=== PATIENT | female | born 1965 | race Caucasian/White ===

== ENCOUNTER → 2016-10-17 | Outpatient (CLI) | payer MEDICARE, MEDICAID, OTHER ==
[~2016-10-17] MED LIST: Iopamidol 755 MG/ML 50 ML Bottle IV STA
--- NOTE | 2016-10-17 12:52 | CT ---
EXAMINATION: CTA chest HISTORY: Hemoptysis COMPARISON: None TECHNIQUE: Axial CT images obtained through the chest following the administration of 50 mL of Isovu e-370 in the left arm. Coronal and sagittal reconstructions obtained. FINDINGS: The lungs are clear without focal consolidation. No pleural effusion or pneumothorax. The heart is borderline in size without a significant pericardial effusion. The thoracic aorta normal ca liber. The main and central pulmonary arteries are patent without visualized pulmonary embolism. Tho racic aorta normal caliber. No mediastinal or hilar lymphadenopathy. No axillary lymphadenopathy. The visualized images of the upper abdomen appear normal. No suspicious osseous abnormalities. IMPRESSION: No acute cardiopulmonary findings.
[2016-10-17 13:25] LABS: CHLORIDE,CL 105 mmol/L (98-110); SODIUM,NA 138 mmol/L (136-146)
== END | disposition home or self-care (01) ==
LOC: MW.CHRC 11:00
PROVIDERS: ATTEND Family Medicine
DX: R04.2 Hemoptysis (principal); R19.7 Diarrhea, unspecified; R10.30 Lower abdominal pain, unspecified; M79.604 Pain in right leg; J45.901 Unspecified asthma with (acute) exacerbation
CPT/HCPCS: 36415; 71275; 80053; 85025; 87804; 99214; Q9967

== ENCOUNTER 2016-10-27 21:30 | Observation (INO) | payer MEDICARE, MEDICAID, SELFPAY ==
[2016-10-27] MEDS ORDERED: Sodium Chloride 0.9% 10 ML Syringe FLUSH PRN (21:34)
[2016-10-27] MEDS ORDERED: Famotidine 20 MG/2 ML SDV IVPUSH ONE (21:34)
[2016-10-27] MEDS ORDERED: Sodium Chloride 0.9% 2.5 ML Syringe FLUSH PRN (21:34)
--- NOTE | 2016-10-27 21:44 | EDM.PDOC ---
<Cyndi Momin - Last Filed: 10/27/16 21:46> ED HPI GENERAL MEDICAL PROBLEM - General Stated Complaint: PT HAS CHEST PAINS Time Seen by Provider: 10/27/16 21:40 Source of Information: Reports: Patient History Limitations: Reports: No limitations - History of Present Illness INITIAL COMMENTS - FREE TEXT/NARRATIVE: HISTORY AND PHYSICAL: [51-year-old female presenting with chest pain] History of Present Illness: [Chest pain started yesterday worsened today. Patient has had upper respiratory infection and was seen by Dr. Braga. He had started her on some prednisone. Sugars have been elevated. She does take a baby aspirin daily Denies shortness of breath Patient has history of IDDM, liver fibrosis, are a, migraine headache] Review of Systems: As per history of present illness and below otherwise all systems reviewed and negative. Past medical history: As per history of present illness and as reviewed below otherwise noncontributory. Surgical history: As per history of present illness and as reviewed below otherwise noncontributory. Rectum a tubal ligation Social history: No reported history of drug or alcohol abuse. Family history: As per history of present illness and as reviewed below otherwise noncontributory. Physical exam: Alert oriented female. Answering questions in full sentences. HEENT: Atraumatic, normocehpalic, pupils reactive, negative for conjunctival pallor or scleral icterus, mucous membranes moist, throat clear, neck supple, nontender, trachea midline. Lungs: Clear to auscultation, breath sounds equal bilaterally, chest non tender. Heart: S1S2, regular, negative for clicks, rubs, or JVD. Abdomen: Soft, nondistended, nontender. Negative for masses or hepatossplenmegaly. Negative for costovertebral tenderness. Pelvis: Stable nontender. Genitourinary: Deferred. Rectal: Deferred Extremities: Atraumatic, negative for cords or calf pain. Pedal pulses are palpable Neurovascular unremarkable. Neuro: Awake, alert, oriented. Cranial nerves II through XII unremarkable. Cerebellum unremarkable. Motor and sensory unremarkable throughout. Exam nonfocal. Diagnostics: [CBC CMP troponin amylase lipase chest x-ray EKG UA] Therapeutics: [Aspirin 324mg, Pepcid, Nitrostat SL] Impression: [Chest pain Diabetes uncontrolled] Plan: [] Definitive disposition and diagnosis as appropriate pending reevaluation and review of above. Onset: sudden Duration: Day(s): (began yesterday), Getting worse Location: Reports: face, chest, upper extremity, left Quality: Reports: Ache, Stabbing Severity: moderate Improves with: Reports: None Associated Symptoms: Reports: no other symptoms - Related Data Allergies Allergy/AdvReac Type Severity Reaction Status Date / Time sumatriptan [From Imitrex] Allergy Other Verified 10/27/16 22:05 Home Meds: Home Meds Albuterol Sulfate [Proair Hfa] 2 puff INH ASDIRECTED PRN 06/04/16 [History] Gabapentin [Neurontin] 1 - 2 tab PO TID 06/04/16 [History] Glimepiride [Amaryl] 4 mg PO WITHBREAKFAST 06/04/16 [History] Omeprazole 40 mg PO DAILY 06/04/16 [History] SitaGLIPtin [Januvia] 100 mg PO DAILY 06/04/16 [History] Insulin Glargine,Hum.Rec.Anlog [Lantus Solostar] 36 unit SQ DAILY 06/05/16 [ History] Clotrimazole [Lotrimin AF 1% Crm] 1 gm TOP BID tube 06/06/16 [Rx] Aspirin 81 mg PO BRK 10/27/16 [History] metroNIDAZOLE [Flagyl] 500 mg PO ASDIRECTED 10/27/16 [History] Past Medical History HEENT History: Reports: Cataract Cardiovascular History: Reports: None. Denies: High cholesterol, Hypertension Respiratory History: Reports: Asthma Gastrointestinal History: Reports: Other (see below) Other Gastrointestinal History: stomach parasite Genitourinary History: Reports: None [employer] History: Reports: Musculoskeletal History: Reports: Arthritis, Back pain, chronic, Gout, RA Neurological History: Reports: Migraines Psychiatric History: Reports: None Endocrine/Metabolic History: Reports: Diabetes, type II Hematologic History: Reports: None Immunologic History: Reports: None Oncologic (Cancer) History: Reports: None Dermatologic History: Reports: None - Infectious Disease History Infectious Disease History: Reports: Chicken pox - Past Surgical History Head Surgeries/Procedures: Reports: None HEENT Surgical History: Reports: Tonsillectomy Respiratory Surgical History: Reports: None GI Surgical History: Reports: None Female Surgical History: Reports: Hysterectomy, Tubal ligation Social & Family History - Family History Family Medical History: Noncontributory Cardiac: Reports: Other (see below) Other Cardiac Family History: pacemaker-father OBGYN: Reports: Musculoskeletal: Reports: Arthritis, RA Endocrine/Metabolic: Reports: Diabetes, type II - Tobacco Use Smoking Status *Q: Never Smoker Second Hand Smoke Exposure: No - Caffeine Use Caffeine Use: Reports: None - Recreational Drug Use Recreational Drug Use: No ED ROS GENERAL - Review of Systems Review Of Systems: ROS reveals no pertinent complaints other than HPI. ED EXAM, GENERAL - Physical Exam Exam: See Below (see dictation) Course - Vital Signs Last Recorded V/S: Last Vital Signs Temp 36.2 C 10/27/16 21:55 Pulse 77 10/27/16 22:35 Resp 17 10/27/16 22:35 BP 103/60 10/27/16 22:35 Pulse Ox 97 10/27/16 22:35 - Orders/Labs/Meds Orders: Active Orders 24 hr Category Date Time Status Cardiac Monitoring [RC] . DIRECTED Care 10/27/16 21:34 Active EKG Documentation Completion [RC] STAT Care 10/27/16 21:35 Active Oxygen Therapy [RC] ASDIRECTED Care 10/27/16 21:34 Active Pulse Oximetry [RC] ASDIRECTED Care 10/27/16 21:34 Active Chest 1V Frontal [CR] Stat Exams 10/27/16 21:34 Taken UA W/MICROSCOPIC [URIN] Stat Lab 10/27/16 21:34 Uncollected Sodium Chloride 0.9% [Normal Saline] 1,000 ml Med 10/27/16 22:15 Active IV ASDIRECTED Sodium Chloride 0.9% [Saline Flush] Med 10/27/16 21:34 Active 10 ml FLUSH ASDIRECTED PRN Sodium Chloride 0.9% [Saline Flush] Med 10/27/16 21:34 Active 2.5 ml FLUSH ASDIRECTED PRN Saline Lock Insert [OM.PC] Stat Oth 10/27/16 21:34 Ordered Medication Orders Sodium Chloride (Normal Saline) 1,000 mls @ 999 mls/hr IV ASDIRECTED WARD Last Admin: 10/27/16 22:12 Dose: 999 mls/hr Sodium Chloride (Saline Flush) 10 ml FLUSH ASDIRECTED PRN PRN Reason: Keep Vein Open Last Admin: 10/27/16 22:04 Dose: 10 ml Sodium Chloride (Saline Flush) 2.5 ml FLUSH ASDIRECTED PRN PRN Reason: Keep Vein Open Last Admin: 10/27/16 22:04 Dose: 2.5 ml Labs: Laboratory Tests 10/27/16 10/27/16 10/27/16 Range/Units 21:40 21:40 21:40 WBC 6.93 (4.0-11.0) K/uL RBC 4.84 (4.30-5.90) M/uL Hgb 14.5 (12.0-16.0) g/dL Hct 43.2 (36.0-46.0) % MCV 89.3 (80.0-98.0) fL MCH 30.0 (27.0-32.0) pg MCHC 33.6 (31.0-37.0) g/dL RDW Std Deviation 44.2 (28.0-62.0) fl RDW Coeff of Michael 14 (11.0-15.0) % Plt Count 274 (150-400) K/uL MPV 11.60 (7.40-12.00) fL Neut % (Auto) 50.2 (48.0-80.0) % Lymph % (Auto) 41.0 H (16.0-40.0) % [place] % (Auto) 6.8 (0.0-15.0) % Eos % (Auto) 1.7 (0.0-7.0) % Baso % (Auto) 0.3 (0.0-1.5) % Neut # 3.5 (1.4-5.7) K/uL Lymph # 2.8 H (0.6-2.4) K/uL [place] # 0.5 (0.0-0.8) K/uL Eos # 0.1 (0.0-0.7) K/uL Baso # 0.0 (0.0-0.1) K/uL Nucleated RBC % 0.0 /100WBC Nucleated RBCs # 0 K/uL INR 0.95 (0.86-1.11) Sodium 139 (136-146) mmol/L Potassium 4.0 (3.5-5.1) mmol/L Chloride 105 (98-110) mmol/L Carbon Dioxide 24 (21-31) mmol/L BUN 7 (6.0-23.0) mg/dL Creatinine 0.8 (0.6-1.5) mg/dL Est Cr Clr Drug Dosing TNP Estimated GFR (MDRD) > 60.0 ml/min Glucose 403 H (60-110) mg/dL Calcium 9.4 (8.8-10.8) mg/dL Total Bilirubin 0.4 (0.1-1.5) mg/dL AST 37 (5-40) IU/L ALT 66 H (8-54) IU/L Alkaline Phosphatase 149 (40-150) Troponin I (0.0-0.29) NG/ML Total Protein 8.3 H (6.0-8.0) g/dL Albumin 4.1 (3.5-5.0) g/dL Globulin 4.2 H (2.0-3.5) g/dL Albumin/Globulin Ratio 1.0 L (1.3-2.8) Amylase 53 (10-90) U/L Lipase 57 (7-80) U/L 10/27/16 Range/Units 21:40 WBC (4.0-11.0) K/uL RBC (4.30-5.90) M/uL Hgb (12.0-16.0) g/dL Hct (36.0-46.0) % MCV (80.0-98.0) fL MCH (27.0-32.0) pg MCHC (31.0-37.0) g/dL RDW Std Deviation (28.0-62.0) fl RDW Coeff of Michael (11.0-15.0) % Plt Count (150-400) K/uL MPV (7.40-12.00) fL Neut % (Auto) (48.0-80.0) % Lymph % (Auto) (16.0-40.0) % [place] % (Auto) (0.0-15.0) % Eos % (Auto) (0.0-7.0) % Baso % (Auto) (0.0-1.5) % Neut # (1.4-5.7) K/uL Lymph # (0.6-2.4) K/uL [place] # (0.0-0.8) K/uL Eos # (0.0-0.7) K/uL Baso # (0.0-0.1) K/uL Nucleated RBC % /100WBC Nucleated RBCs # K/uL INR (0.86-1.11) Sodium (136-146) mmol/L Potassium (3.5-5.1) mmol/L Chloride (98-110) mmol/L Carbon Dioxide (21-31) mmol/L BUN (6.0-23.0) mg/dL Creatinine (0.6-1.5) mg/dL Est Cr Clr Drug Dosing Estimated GFR (MDRD) ml/min Glucose (60-110) mg/dL Calcium (8.8-10.8) mg/dL Total Bilirubin (0.1-1.5) mg/dL AST (5-40) IU/L ALT (8-54) IU/L Alkaline Phosphatase (40-150) Troponin I < 0.10 (0.0-0.29) NG/ML Total Protein (6.0-8.0) g/dL Albumin (3.5-5.0) g/dL Globulin (2.0-3.5) g/dL Albumin/Globulin Ratio (1.3-2.8) Amylase (10-90) U/L Lipase (7-80) U/L Meds: Medications Generic Name Dose Route Start Last Admin Trade Name Freq PRN Reason Stop Dose Admin Sodium Chloride 1,000 mls @ 999 mls/hr 10/27/16 22:15 10/27/16 22:12 Normal Saline IV 999 mls/hr ASDIRECTED WARD Administration Sodium Chloride 10 ml 10/27/16 21:34 10/27/16 22:04 Saline Flush FLUSH 10 ml ASDIRECTED PRN Administration Keep Vein Open Sodium Chloride 2.5 ml 10/27/16 21:34 10/27/16 22:04 Saline Flush FLUSH 2.5 ml ASDIRECTED PRN Administration Keep Vein Open Discontinued Medications Generic Name Dose Route Start Last Admin Trade Name Freq PRN Reason Stop Dose Admin Aspirin 324 mg 10/27/16 22:16 10/27/16 22:27 Aspirin PO 10/27/16 22:17 324 mg ONETIME ONE Administration Famotidine 20 mg 10/27/16 21:34 10/27/16 21:57 Pepcid IVPUSH 10/27/16 21:35 20 mg ONETIME ONE Administration Insulin Human Regular 15 unit 10/27/16 22:11 10/27/16 22:21 Novolin R SUBCUT 10/27/16 22:12 15 units ONETIME ONE Administration Protocol Nitroglycerin 0.4 mg 10/27/16 21:34 10/27/16 22:02 Nitrostat SL 10/27/16 21:35 0.4 mg ONETIME ONE Administration Nitroglycerin 0.5 gm 10/27/16 22:16 10/27/16 22:27 Nitro-Bid 2% TOP 10/27/16 22:17 0.5 gm ONETIME ONE Administration Ondansetron HCl 4 mg 10/27/16 22:24 10/27/16 22:33 Zofran IVPUSH 10/27/16 22:25 4 mg ONETIME ONE Administration Departure - Departure Time of Disposition: 21:51 Disposition: Refer to Observation Condition: good Clinical Impression: Atypical chest pain, Acute coronary syndrome - My Orders Last 24 Hours: My Active Orders 10/27/16 22:15 Sodium Chloride 0.9% [Normal Saline] 1,000 ml IV ASDIRECTED - Assessment/Plan Last 24 Hours: My Active Orders 10/27/16 22:15 Sodium Chloride 0.9% [Normal Saline] 1,000 ml IV ASDIRECTED <Sydni Ramires - Last Filed: 10/27/16 22:50> ED HPI GENERAL MEDICAL PROBLEM - History of Present Illness INITIAL COMMENTS - FREE TEXT/NARRATIVE: This is Dr. Ramires dictating an addendum note as I assumed care of this case at 10 PM. I see and evaluated the patient and agree with history and physical as above. The patient states she has had a stress test many years ago and she has no significant family history. Her father did have a pacemaker but no coronary artery disease. The chest pain has been on and off since yesterday and it was a 10/10 earlier but when she arrived her was a 4/10. EKG has been reviewed by me and labs have been ordered. She is currently receiving nitroglycerin and aspirin and we will reevaluate once testing results are back. The patient states that the discomfort she is having in her chest is associated with some tingling and discomfort in her job but it's nonspecifically radiating from her chest and she is having bilateral antecubital arm pain which started in the left but now she says she's feeling in the right. She has no nausea no shortness of breath no abdominal complaints. The patient denies any trauma or upper respiratory symptoms currently. The patient did have a dip in her blood pressure with the first nitroglycerin and we will hang IV fluids and proceed with the nitros. Patient also has a serum blood sugar of 403 and the IV fluids will assist with that but her anion gap is 10. I will give her insulin subcutaneous 15 units and reevaluate. When talking to this patient her chest pain seems very atypical and episodic and with her troponin negative with chest pain on and off for 24 hours it is reassuring. The patient states she does take one baby aspirin a day and we will give her 4 more baby aspirin. I will plan on placing nitro paste after the sublingual and reevaluation. 1020: After 2 sublingual nitroglycerin the patient states the pain is pretty much gone. She is having some nausea I will give her some Zofran. We will place a half an inch of nitro paste and finish reviewing testing results and discuss care plan for admission for observation 1045p: Patient currently is pain-free and is aware of all testing results and is agreeable to observation admission. I will discuss the case with our hospitalist Dr. New and plan for observation admission. Impression: Chest pain rule out ACS, hyperglycemia with poorly controlled diabetes ED ROS GENERAL - Review of Systems Review Of Systems: ROS reveals no pertinent complaints other than HPI. Departure - Departure Time of Disposition: 22:49 Condition: good - My Orders Last 24 Hours: My Active Orders 10/27/16 22:15 Sodium Chloride 0.9% [Normal Saline] 1,000 ml IV ASDIRECTED - Assessment/Plan Last 24 Hours: My Active Orders 10/27/16 22:15 Sodium Chloride 0.9% [Normal Saline] 1,000 ml IV ASDIRECTED
[2016-10-27] MEDS: Nitroglycerin 0.4 MG Tab.SL SL ONE ×2 (21:56→22:02)
[2016-10-27 22:10] LABS: CHLORIDE,CL 105 mmol/L (98-110); SODIUM,NA 139 mmol/L (136-146)
[2016-10-27] MEDS ORDERED: Insulin Regular, Human 100 Units/ML 10 ML Vial SUBCUT ONE (22:11)
[2016-10-27] MEDS ORDERED: Sodium Chloride 0.9% 1,000 ML IV SCH (22:15)
[2016-10-27] MEDS ORDERED: Nitroglycerin 2% Oint 1 GM UD Packet TOP ONE (22:16)
[2016-10-27] MEDS ORDERED: Aspirin 81 MG Tab.Chew PO ONE (22:16)
[2016-10-27] MEDS ORDERED: Ondansetron 4 MG/2 ML SDV IVPUSH ONE (22:24)
[2016-10-28] MEDS: Insulin Aspart 100 Units/ML 3 ML Pen SUBCUT SCH ×2 (07:03→11:11)
[2016-10-28] MEDS ORDERED: Albuterol 8 GM Inhaler INH PRN (08:00)
[2016-10-28] MEDS ORDERED: Aspirin 81 MG Tab.Chew PO SCH (08:00)
[2016-10-28] MEDS ORDERED: Glimepiride 2 MG Tab PO SCH (08:00)
--- NOTE | 2016-10-28 08:08 | PCM.HP ---
H&P History of Present Illness - General Date of Service: 10/28/16 Admit Problem/Dx: Admission Diagnosis/Problem Admission Diagnosis/Problem Acute coronary syndrome Source of Information: Patient History Limitations: Reports: No limitations - History of Present Illness Initial Comments - Free Text/Narative: This 51 year old female with pmh of uncontrolled IDDM type 2, liver fibrosis, RA , migraines and gout presented to the ED last evening with complaints of chest pain. She reports this chest pain was present last week when she was coughing a lot from URI. Then it stopped and started again yesterday, it felt like "hot coals were thrown at my chest". She also reports having left facial numbness and subjective L arm weakness and pain to medial L elbow, to palpation and movement. She reports a headache and blurred vision intermittently, "but that is from my diabetes". The chest pain comes intermittently and is not linked to activity or eating that she can pin point. There is no radiation to her arm, and the pain is a sharp sensation that lasts maybe 10 seconds. SHe did have an episode of "chest pain" dring our interview. She pointed to her L anterior chest and reported it was a sharp pain and then it was gone. She was recently started on a Jardiance, along with her Januvia, Amaryl and Lantus at , by PCP Dr. Reynoso, who noted worsening control of DM. She reports she is trying to eat better but doesn't know why things aren't getting better. In the ED WBC WNL, Glucose elevated at 403. UA negative. CXR unremarkable. EKG SR no ST segment changes. She was given nitro paste, with no real improvement in pain. She just reported a headache. She was admitted for atypical chest pain rule out ACS. PCP Dr. Evan Reynoso. chest Pain Score (Numeric/FACES): 8 - Related Data Allergies/Adverse Reactions: Allergies Allergy/AdvReac Type Severity Reaction Status Date / Time sumatriptan [From Imitrex] Allergy Other Verified 10/27/16 22:05 Home Medications: Home Meds Albuterol Sulfate [Proair Hfa] 2 puff INH ASDIRECTED PRN 06/04/16 [History] Gabapentin [Neurontin] 1 - 2 tab PO TID 06/04/16 [History] Glimepiride [Amaryl] 4 mg PO WITHBREAKFAST 06/04/16 [History] Omeprazole 40 mg PO DAILY 06/04/16 [History] SitaGLIPtin [Januvia] 100 mg PO DAILY 06/04/16 [History] Insulin Glargine,Hum.Rec.Anlog [Lantus Solostar] 36 unit SQ DAILY 06/05/16 [ History] Clotrimazole [Lotrimin AF 1% Crm] 1 gm TOP BID tube 06/06/16 [Rx] Aspirin 81 mg PO BRK 10/27/16 [History] Acetaminophen [Tylenol] 650 mg PO Q6H PRN #0 tablet 10/28/16 [Rx] Past Medical History HEENT History: Reports: Cataract Cardiovascular History: Reports: None. Denies: Blood clots/VTE/DVT, High cholesterol, Hypertension, [place] Respiratory History: Reports: Asthma Gastrointestinal History: Reports: GERD, Other (see below) Other Gastrointestinal History: stomach parasite, liver fibrosis Genitourinary History: Reports: None. 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: Musculoskeletal History: Reports: Arthritis, Back pain, chronic, Gout, RA Neurological History: Reports: Migraines, TIA (in the past) Psychiatric History: Reports: None Endocrine/Metabolic History: Reports: Diabetes, type II, Obesity/BMI 30+ Hematologic History: Reports: None Immunologic History: Reports: None Oncologic (Cancer) History: Reports: None Dermatologic History: Reports: None - Infectious Disease History Infectious Disease History: Reports: Chicken pox - Past Surgical History Head Surgeries/Procedures: Reports: None HEENT Surgical History: Reports: Tonsillectomy Respiratory Surgical History: Reports: None Female Surgical History: Reports: Hysterectomy, Tubal ligation Endocrine Surgical History: Reports: None Neurological Surgical History: Reports: None Musculoskeletal Surgical History: Reports: None Dermatological Surgical History: Reports: None Social & Family History - Family History Family Medical History: Noncontributory Cardiac: Reports: Other (see below) Other Cardiac Family History: pacemaker-father OBGYN: Reports: Musculoskeletal: Reports: Arthritis, RA Endocrine/Metabolic: Reports: Diabetes, type II - Tobacco Use Smoking Status *Q: Never Smoker Second Hand Smoke Exposure: No - Caffeine Use Caffeine Use: Reports: Soda - Recreational Drug Use Recreational Drug Use: No H&P Review of Systems - Review of Systems: Review Of Systems: See Below General: Reports: no symptoms. Denies: fever, chills, malaise HEENT: Reports: headaches, visual changes (intermittent blurred vision) Pulmonary: Reports: Cough (dry hacking, recent URI). Denies: Shortness of Breath, Wheezing Cardiovascular: Reports: chest pain. Denies: palpitations, edema, syncope Gastrointestinal: Reports: Abdominal pain (diffuse cramping), Diarrhea (started having diarrhea this am.). Denies: Black stool, Bloody stool, Nausea, Vomiting Genitourinary: Reports: no symptoms. Denies: dysuria, frequency, burning, pain Musculoskeletal: Reports: arm pain (L medial elbow pain, reports a lump that is tender). Denies: neck pain Skin: Reports: no symptoms Psychiatric: Reports: anxiety (regarding chest pain and not wanting to have a heart attack or stroke "because my blood sugars are out of control") Neurological: Reports: No Symptoms. Denies: Confusion, Numbness, Paresthesia, Trouble Speaking, Weakness Hematologic/Lymphatic: Reports: no symptoms Immunologic: Reports: no symptoms Exam - Exam Exam: See Below - Vital Signs Vital Signs: Last Vital Signs Temp 98.1 F 10/28/16 04:00 Pulse 75 10/28/16 04:00 Resp 18 10/28/16 04:00 BP 125/76 10/28/16 04:00 Pulse Ox 95 10/28/16 04:00 Weight: 78.5 kg - Exam General: alert, oriented, cooperative HEENT: Conjunctiva clear, EACs clear, EOMI, Hearing intact, Mucosa moist & pink , Nares patent, Posterior pharynx clear, PERRLA Neck: supple, trachea midline, 2+ carotid pulse wo bruit, full range of motion. No: JVD Lungs: Clear to auscultation, Normal respiratory effort Cardiovascular: regular rate, regular rhythm, normal S1, normal S2. No: irregular rhythm, systolic murmur Abdomen: normal bowel sounds, soft. No: organomegaly Extremities: normal inspection, other (tenderness to medial L elbow, not noticeable lump as per patient report but is tender. No erythema or edema noted) . No: edema, increased warmth Neurological: cranial nerves intact, normal gait, normal speech, normal tone. 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 ) Neuro Extensive - Mental Status: alert, oriented x3, normal mood/affect, normal cognition, memory intact Neuro Extensive - Motor, Sensory, Reflexes: CN II-XII intact, normal gait. No: facial palsy (L) (does report "numbness to L face), facial palsy (R) Psychiatric: normal affect, normal mood, anxious - Patient Data Lab Results last 24 hrs: Laboratory Results - last 24 hr 10/27/16 10/27/16 10/28/16 Range/Units 23:15 23:30 03:40 POC Glucose 221 H (60-110) mg/dL Troponin I < 0.10 (0.0-0.29) NG/ML Urine Color YELLOW Urine Appearance CLEAR Urine pH 6.0 (5.0-8.0) Ur Specific [place] 1.010 (1.001-1.035) Urine Protein NEGATIVE (NEGATIVE) mg/dL Urine Glucose (UA) >=1000 (NEGATIVE) mg/dL Urine Ketones NEGATIVE (NEGATIVE) mg/dL Urine Occult Blood NEGATIVE (NEGATIVE) Urine Nitrite NEGATIVE (NEGATIVE) Urine Bilirubin NEGATIVE (NEGATIVE) Urine Urobilinogen 0.2 (<2.0) EU/dL Ur Leukocyte Esterase NEGATIVE (NEGATIVE) Urine RBC 0-1 (0-2/HPF) Urine WBC 0-2 (0-5/HPF) Ur Epithelial Cells FEW (NONE-FEW) Urine Bacteria FEW (NEGATIVE) Result Diagrams: 10/27/16 21:40 10/27/16 21:40 Jamal Results last 24 hrs: Microbiology 10/28/16 03:40 Clostridium difficile Toxin A&B (M) - Final Stool / Feces - Stool, Liquid Negative for C.Diff Toxin/AG 10/28/16 03:40 Campylobacter Antigen Assay - Final Stool / Feces - Stool, Liquid NEGATIVE CAMPYLOBACTER AG 10/28/16 03:40 Stool for WBCs - Final Stool / Feces - Stool, Liquid NEGATIVE FOR WBC'S *Q Meaningful Use (ADM) - VTE *Q VTE Criteria *Q: - VTE Risk Assess *Q Each Risk Factor Represents 1 Point: Age 41 - 59 years, Obesity (BMI greater than 30), Abnormal Pulmonary Function (COPD) Total Score 1 Point Risk Factors: 3 Each Risk Factor Represents 2 Points: None Total Score 2 Point Risk Factors: 0 Each Risk Factor Represents 3 Points: None Total Score 3 Point Risk Factors: 0 Each Risk Factor Represents 5 Points: None Total Score 5 Point Risk Factors: 0 Venous Thromboembolism Risk Factor Score *Q: 3 - Stroke *Q Stroke Criteria *Q: - AMI *Q AMI Criteria *Q: - Problem List (1) Atypical chest pain SNOMED Code(s): 248258641 ICD Code: R07.89 - OTHER CHEST PAIN Status: Acute Current Visit: Yes (2) Diarrhea SNOMED Code(s): 84121506 ICD Code: R19.7 - DIARRHEA, UNSPECIFIED Status: Acute Current Visit: No Qualifiers: Diarrhea type: unspecified type Qualified Code(s): R19.7 - Diarrhea, unspecified (3) Rheumatoid arthritis SNOMED Code(s): 12204114 ICD Code: M06.9 - RHEUMATOID ARTHRITIS, UNSPECIFIED Status: Chronic Current Visit: No Qualifiers: Rheumatoid arthritis location: wrist Rheumatoid factor presence: unspecified presence Laterality: bilateral Qualified Code(s): M06.9 - Rheumatoid arthritis, unspecified (4) DM (diabetes mellitus), type 2, uncontrolled SNOMED Code(s): 67780733, 266551912 ICD Code: E11.65 - TYPE 2 DIABETES MELLITUS WITH HYPERGLYCEMIA Status: Acute Current Visit: Yes Qualifiers: Diabetes mellitus complication status: with hyperglycemia 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: with seals engraver use Qualified Code(s): E11.65 - Type 2 diabetes mellitus with hyperglycemia; Z79.4 - detention (current) use of insulin Problem List Initiated/Reviewed/Updated: Yes Orders Last 24hrs: Active Orders 24 hr Category Date Time Status Blood Glucose Check, Bedside [RC] TIDAC Care 10/28/16 00:47 Active Communication Order [RC] ROUTINE Care 10/28/16 01:27 Active Telemetry Monitoring [Cardiac Monitoring] [RC] Q8H Care 10/28/16 01:25 Active [employer] Diet [DIET] Diet 10/28/16 Breakfast Active CULTURE STOOL + CAMPY+SHIGATOX [RM] Routine Lab 10/28/16 03:40 Results TROPONIN I [CHEM] Q6H Lab 10/28/16 09:40 Ordered Albuterol [Ventolin HFA] Med 10/28/16 08:00 Active 8 gm INH ASDIRECTED PRN Aspirin Med 10/28/16 08:00 Active 81 mg PO BRK Glimepiride [Amaryl] Med 10/28/16 08:00 Active 4 mg PO WITHBREAKFAST Insulin Aspart [NovoLOG] Med 10/28/16 07:30 Active See Protocol SUBCUT TIDAC Insulin Glarg,Human.Rec.Analog [LantUS Solostar] Med 10/28/16 21:00 Active 36 units SUBCUT BEDTIME Omeprazole Med 10/28/16 09:00 Active 40 mg PO ACBREAKFAST SitaGLIPtin [Januvia] Med 10/28/16 09:00 Active 100 mg PO DAILY Resuscitation Status Routine Resus Stat 10/28/16 07:59 Ordered Medication Orders Albuterol (Ventolin Hfa) 8 gm INH ASDIRECTED PRN PRN Reason: Shortness of Breath Aspirin (Aspirin) 81 mg PO BRK WARD Glimepiride (Amaryl) 4 mg PO WITHBREAKFAST WARD Sodium Chloride (Normal Saline) 1,000 mls @ 999 mls/hr IV ASDIRECTED WARD Last Admin: 10/27/16 22:12 Dose: 999 mls/hr Insulin Aspart (Novolog) 0 unit SUBCUT TIDAC WARD PRN Reason: Protocol Last Admin: 10/28/16 07:03 Dose: 2 units Insulin Glargine (Lantus Solostar) 36 units SUBCUT BEDTIME WARD Omeprazole (Omeprazole) 40 mg PO ACBREAKFAST WARD Sitagliptin Phosphate (Januvia) 100 mg PO DAILY WARD Sodium Chloride (Saline Flush) 10 ml FLUSH ASDIRECTED PRN PRN Reason: Keep Vein Open Last Admin: 10/27/16 22:04 Dose: 10 ml Sodium Chloride (Saline Flush) 2.5 ml FLUSH ASDIRECTED PRN PRN Reason: Keep Vein Open Last Admin: 10/27/16 22:04 Dose: 2.5 ml Assessment/Plan Comment:: This 51 year old female admitted with atypical chest pain 1. Chest pain: Troponins x 3 negative, ACS ruled out. Telemetry SR with no ST segment changes. Sep 2016, Lipid panel LDL 94 HDL 48, Tri 113 and A1c 13.7. Encouraged continued lifestyle changes with diet to bring A1c down. 2. Subjective L arm weakness, and facial numbness: Head CT negative. Numbness tingling to face intermittently likely not TIA. Carotid doppler pending at discharge. Discharge plan: Will arrnage follow up with PCP, Dr. Reynoso, who I spoke with regarding admission. I will also arrange out patient stress test with Dr. Gama. She is aware of test results and feels comfortable discharging home today. Conitnue all medications as previously prescribed. Continue ASA daily and continue to change lifestyle habits, to include exercise and ADA diet to lower A1c. She is to return to the ED or clinic if concerns arise.
[2016-10-28] MEDS ORDERED: Loperamide 2 MG Cap PO PRN (08:48)
[2016-10-28] MEDS ORDERED: Acetaminophen 325 MG Tab PO PRN (08:48)
[2016-10-28] MEDS ORDERED: Pantoprazole 40 MG in Sodium Chloride 0.9% 10 ML IVPUSH SCH (09:00)
[2016-10-28] MEDS ORDERED: Omeprazole 20 MG Cap.CR PO SCH (09:00)
[2016-10-28 11:42] VITALS: BP 114/69
--- NOTE | 2016-10-28 12:42 | US ---
EXAMINATION: Carotid US with thompson scale and duplex imaging. HISTORY: Numbness FINDINGS: Ultrasound examination of bilateral cervical carotid arteries was performed using thompson scale and dup cain imaging. Minimal atheromatous disease is noted within the carotid arteries bilaterally. Antegr piper flow is noted within the vertebral arteries. These are the peak velocities in cm per second (systole), right and left respectively, by a comma: CCA (common carotid artery) - 66, 98 ICA (internal carotid artery) - 69, 76 ECA (External carotid artery) - 59, 68 ICA/CCA systolic ratio Right - 1.1 Left - 1.0 IMPRESSION: No significant atheromatous plaque or elevated velocities identified within the carotid arteries.
[2016-10-28] MEDS ORDERED: Insulin Glargine,Human Rec. Analog 100 Units/ML 3 ML Pen SUBCUT SCH (21:00)
--- NOTE | 2016-10-30 16:47 | CR ---
EXAM DATE: 10/27/16 PATIENT'S AGE: 51 Patient: ANT [facility] Facility: [place], [place] Site . Site : 1965 Study: XRay Chest [id number]/13/2017 10:16:49 PM Ordering Physician: Doctor Piedra Final Report: INDICATION: chest pain TECHNIQUE: Chest 1 view. COMPARISON: None. FINDINGS: Cardiovascular and mediastinum: Heart size and vasculature are normal in caliber and appearance. Mediastinum is within normal limits. Lungs and pleural space: Lungs are clear. No sign of infiltrate or mass. No sign of pleural effusion. No pneumothorax. Bones and soft tissues: No significant findings. IMPRESSION: Unremarkable chest. Dictated by: Vernon Marroquin MD @ 10/27/2016 22:35:15 (Electronic Signature) Report Signed by Proxy and Original Signed Document filed in the Medical Record. MTDD
--- NOTE | 2016-10-30 16:51 | CT ---
EXAM DATE: 10/27/16 PATIENT'S AGE: 51 Patient: ANT [facility] Facility: [place], [place] Site . Site : 1965 Study: CT Head [id number]/14/2017 9:24:29 AM Ordering Physician: Virgen Dubon Final Report: HISTORY: Facial numbness. TECHNIQUE: The head was scanned in the axial plane at 3 mm intervals without IV contrast. Reconstructed bone windows obtained as well as sagittal and coronal reconstructions. FINDINGS: Soft tissue is seen posterior right maxillary sinus compatible with small mucous retention cysts or polyps. The remainder of the visualized paranasal sinuses and mastoid air cells are well aerated. The calvarium is intact. The ventricles and sulci are normal size, shape and position. No intra-axial mass, edema or midline is identified. No extra-axial fluid collections are seen. Felder- white differentiation is preserved. IMPRESSION: 1. No acute intracranial pathology or bleed. 2. A small mucous retention cysts or polyps are seen in the right maxillary sinus. Dictated by Claudia Estrada MD @ 10/28/2016 9:33:16 AM Dictated by: Claudia Estrada MD @ 10/28/2016 09:33:34 (Electronic Signature) Report Signed by Proxy and Original Signed Document filed in the Medical Record. MTDD
== END 2016-10-28 13:39 | disposition home or self-care (01) ==
LOC: MW.ED 21:30 → MW.MS 22:50 → OBSVTOIN 22:50 → INTOOBSV 22:50
PROVIDERS: ADMIT Internal Medicine; ATTEND Internal Medicine
DX: R07.89 Other chest pain (principal); R19.7 Diarrhea, unspecified; M06.9 Rheumatoid arthritis, unspecified; E11.65 Type 2 diabetes mellitus with hyperglycemia; Z79.4 Long term (current) use of insulin; Z79.899 Other long term (current) drug therapy; K21.9 Gastro-esophageal reflux disease without esophagitis; E66.9 Obesity, unspecified; Z68.30 Body mass index [BMI] 30.0-30.9, adult; Z90.710 Acquired absence of both cervix and uterus; Z98.890 Other specified postprocedural states; Z98.51 Tubal ligation status
CPT/HCPCS: 36415; 70450; 71010; 80053; 81001; 82150; 82962; 83630; 83690; 84484; 85025; 85610; 87046; 87324; 87899; 93005; 93880; 96361; 96372; 96374; 96375; 97802; 99285; A9270; C9113; G0378; J1815; J2405; J7040

== ENCOUNTER → 2016-11-18 | Outpatient (CLI) | payer MEDICARE, MEDICAID, OTHER ==
--- NOTE | 2016-11-18 11:08 | PCM.PRNOTE ---
- Free Text/Narrative Note: Exercise MIBI Indication CP Sestamibi Tc99 25 MCi was given at the peak HR Patient was brought to the stress test lab in postabsorptive state verbal and paper consent was obtained from patient Vital signs at resting state blood pressure of 112/80 with a heart rate of 94 EKG shows sinus rhythm no ST changes no Q waves Maximal heart rate of 147 and target heart rate is 145 Patient reached the target heart rate, completed stage III Ace protocol Peak blood pressure is 158/80 Total exercise time of 7.[address] changes with a peak heart rate no arrhythmia METS 10.1 No symptom of chest pain or feeling dizzy, however patient got knee pain, and wished to stop Impression Normal hemodynamics, normal chronotropic, excellent exercise capacity, negative for ischemia on EKG Plan Nuclear portion pending
--- NOTE | 2016-11-18 14:20 | NM ---
EXAMINATION: Nuclear medicine myocardial perfusion study with exercise stress test. HISTORY: Chest.. PROCEDURE: Patient exercised according to Ace protocol for 7 minutes and 37 seconds and achieved maximal hear t rate of 147 beats per minute. Adequate exercise. Following intravenous administration of 26.4 mCi of technetium 99m sestamibi, stress SPECT images i ncluding gating imaging was performed. FINDINGS: Stress myocardial SPECT images demonstrates minimal decreased uptake along the inferior wall from th e midportion to previous. There is also a small area of minimally decreased perfusion along the ante rolateral septal wall, likely breast attenuation. Review of gated images demonstrates normal wall motion, contractility and wall thickening. The left ventricular ejection fraction is 60 %. The left ventricular chamber size is normal. IMPRESSION: 1. Moderate area of minimally decreased uptake along the inferior wall from midportion to base. Saeid elate with rest imaging. 2. Normal ventricular chamber size and function with ejection fraction of 60%.
== END | disposition home or self-care (01) ==
LOC: MW.NM 09:25
PROVIDERS: ATTEND Nurse Practitioner Family
DX: R07.89 Other chest pain (principal); E11.65 Type 2 diabetes mellitus with hyperglycemia; R07.9 Chest pain, unspecified
CPT/HCPCS: 78451; 93017; A9500